=== PATIENT | female | born 1950 | race Caucasian/White ===

== ENCOUNTER → 2019-02-14 | Outpatient (CLI) | payer MEDICARE, OTHER ==
[~2019-02-14] MED LIST: ALDACTONE 25MG25 M1 PO; AMBIEN 5MG TABLE5 MG PO; ASPIRIN 81M81 MG/TA2 PO; COLACE 100100 MG/CAP PO; COMPAZINE 5MG TA5 MG PO; ENULOSE10 GM/15 M PO; FERROUS SU325 MG/TAB PO; IMODIUM 2MG CAPS2 MG PO; INDERAL 10MG10 MG PO; KLOR-CON M2020 MEQ PO; LANTUS100 U/ML SC; LASIX 40MG TABL40 MG PO; LOMOTIL 0.025 M1 TAB PO; NAFTIN1% TP; NEURONTIN300 MG/CAP PO; NOVOLOG FLEX100 U/ML SQ; PRAVACHOL 40MG40 MG PO; PRILOSEC 20MG20 MG PO; REFRESH CELLUVI1 SOL OP; REFRESH PLUS 00.4 M1 OP; ULTRAM 50MG TAB50 MG PO; VITAMIN B11000 MCG/M IM
== END ==
LOC: ZCOL.LAB 16:25
DX: K11.3 Abscess of salivary gland (principal)

== ENCOUNTER → 2019-06-30 | Outpatient (CLI) | payer MEDICARE, OTHER | LOC: ZCOL.LAB 16:22 | DX: K11.3 Abscess of salivary gland (principal) ==

== ENCOUNTER → 2019-07-14 | Outpatient (CLI) | payer MEDICARE, OTHER ==
[2019-07-14 12:30] LABS: CREATININE, serum 1.47 (0.52-1.25)
== END ==
LOC: COL.LAB 11:30
PROVIDERS: Otolaryngology
DX: K11.3 Abscess of salivary gland (principal)

== ENCOUNTER 2020-11-22 07:00 | Inpatient (IN) | payer MEDICARE, OTHER ==
[~2020-11-22] VITALS: Ht 162.6 cm; Wt 68.7 kg
--- NOTE | 2020-11-22 07:40 | NUR ---
arrived on unit per from admission, was a 2 assist out of WC and into bed, changed into a gown, has sling to right arm and some bruising to right arm, c/o pain when moving arm and then quiets down, instructed on use of call light
--- NOTE | 2020-11-22 08:00 | NUR ---
called and said she had "wet" herself, incontinent care provided
[2020-11-22 09:11] LABS: BASO # 0.1 (0.0-0.2); BASO % 1.1 % (0.0-2.0); EOS # 0.6 (0.0-0.7); EOS % 5.6 % (0-4.0); GRAN # 7.6 (1.4-6.5); GRAN % 70.7 % (42.2-75.2); HEMOGLOBIN 11.3 g/dl (12.5-16.0); LYMPH # 1.4 (1.2-3.4); LYMPH % 12.5 % (20.0-51.0); MEAN CELL VOLUME 92 fl (80.0-100.0); MEAN CORPUSCULAR HEMOGLOBIN 30 pg (27.0-31.0); MEAN CORPUSCULAR HGB CONC 33 g/dl (33.0-37.0); MEAN PLATELET VOLUME 12.4 fl (7.4-10.4); MONO % 9.4 % (1.7-9.3); PLATELET COUNT 211 K/mm3 (130-400); RED BLOOD COUNT 3.75 M/mm3 (4.10-5.30); REDCELL DISTRIBUTION WIDTH-CV 19.4 % (11.5-14.5)
[2020-11-22 09:12] LABS: HEMATOCRIT 34.3 % (37.0-47.0)
[2020-11-22 09:22] LABS: ALBUMIN 2.2 gm/dL (3.5-5.0); CALCIUM 9.2 mg/dL (8.4-10.2); CREATININE, serum 1.47 (0.52-1.25); POTASSIUM 5.1 mmol/L (3.4-5.0); TOTAL PROTEIN 5.4 gm/dL (6.4-8.2)
[2020-11-22 09:25] LABS: INR 1.7 (0.8-3.0); PROTHROMBIN TIME 18.6 SECONDS (9.7-12.8)
--- NOTE | 2020-11-22 09:25 | NUR ---
assisted up in bed to eat breakfast
[2020-11-22 09:29] LABS: PRE ALBUMIN 6.6 mg/dL (17.6-36.0)
--- NOTE | 2020-11-22 10:20 | NUR ---
vascular lab in and completing echo
--- NOTE | 2020-11-22 10:24 | NUR ---
Initial visit; Patient thanked Adult Psychiatrist for looking in on her and keeping her in Adult Psychiatrist's prayers.
[2020-11-22] MEDS ORDERED: THERAGRAN TAB1 UDTAB PO (10:41)
[2020-11-22] MEDS ORDERED: GLUCOTROL 5M5 MG/TAB PO (10:43)
[2020-11-22] MEDS ORDERED: KLOR-CON 1010 MEQ PO ×2 (10:45→10:46)
[2020-11-22] MEDS ORDERED: XIFAXAN550 MG PO (10:48)
[2020-11-22] MEDS ORDERED: PROAMATINE 5MG T5 MG PO (10:50)
[2020-11-22] MEDS ORDERED: TYLENOL 325MG325 MG PO (10:58)
[2020-11-22] MEDS ORDERED: NORCO 325 MG-51 TAB PO (11:01)
[2020-11-22] MEDS ORDERED: ZOFRAN 4MG T4 MG/TAB PO (11:02)
[2020-11-22 11:38] VITALS: BP 113/46; PULSE 60; TEMP 97.2
--- NOTE | 2020-11-22 11:48 | NUR ---
watching TV, admission assessments completed, see interventions for further info, is alert and is oriented to self and place and knows family but forgets why she is in hospital,
--- NOTE | 2020-11-22 11:57 | NUR ---
INT started by EMANUEL Navarrete in left forearm
--- NOTE | 2020-11-22 13:17 | NUR ---
bedside shift report given to EMANUEL Devi
--- NOTE | 2020-11-22 14:45 | NUR ---
Physician/Ophthalmologist staffed with hospitalist. The patient will not have surgery and is to discharge back to [facility] in [place]. [facility] contacted [employer] from [facility]. They can cook pickled meat the patient at 1530 or [phone]. The team was in agreeance. SW to fax discharge orders. There are no additional needs.
--- NOTE | 2020-11-22 15:55 | NUR ---
informed this RN that due to patient is high risk for surgical complications, surgery can not be done at this time, and we will d/c patient to [facility] in [place]. Left forearm INT removed and covered with band-aid. Discharge paperworks given to patient. Report given to EMANUEL Hagen at [facility]. Transferred patient to the wheelchair and escorted patient down to ER. [facility] provided transportation, care transferred to [facility] staff. Patient left facility at 15:50 pm.
== END 2020-11-22 16:42 | DRG 563 ==
LOC: JCC 07:00 → SURG 11-23 10:00 → EDSTATUS 11-23 10:00 → SDCO 11-23 10:00
PROVIDERS: Physician Assistant; ADMIT Student in an Organized Health Care Education/Training Program
DX: S42.201A Unspecified fracture of upper end of right humerus, initial encounter for closed fracture (principal); E87.2 Acidosis; N18.9 Chronic kidney disease, unspecified; E87.5 Hyperkalemia; E83.52 Hypercalcemia; D64.9 Anemia, unspecified; K21.9 Gastro-esophageal reflux disease without esophagitis; G47.00 Insomnia, unspecified; G89.29 Other chronic pain; J44.9 Chronic obstructive pulmonary disease, unspecified; I12.9 Hypertensive chronic kidney disease with stage 1 through stage 4 chronic kidney disease, or unspecified chronic kidney disease; E78.5 Hyperlipidemia, unspecified; E11.22 Type 2 diabetes mellitus with diabetic chronic kidney disease; E11.42 Type 2 diabetes mellitus with diabetic polyneuropathy; Z90.710 Acquired absence of both cervix and uterus; Z90.49 Acquired absence of other specified parts of digestive tract; F17.210 Nicotine dependence, cigarettes, uncomplicated; I48.0 Paroxysmal atrial fibrillation
CPT/HCPCS: A9284